=== PATIENT | female | born 1950 | race African-American/Black ===

== ENCOUNTER 2024-01-10 15:11 | Emergency (ER) | payer MEDICARE ==
[~2024-01-10] VITALS: Ht 170.2 cm; Wt 110.0 kg
[2024-01-10 15:16] VITALS: TEMP 97.6; O2SAT 99
[2024-01-10] MEDS: ONDANSETRON HCL 4MG/2ML INJ IV STA (15:43)
[2024-01-10] MEDS: MORPHINE SULFATE 4 MG/ML INJ (FOR IV/IM USE) IV STA (15:44)
[2024-01-10 15:54] LABS: BASOPHILS % 1.7 % (0.0-2.0); HEMATOCRIT. 31.4 % (36.0-48.0); HEMOGLOBIN. 9.7 g/dL (12.0-16.0); LYMPHOCYTES % 32.5 % (20.0-50.0); MEAN CORPUSCULAR HEMOGLOBIN 25.8 pg (28.0-32.0); MEAN CORPUSCULAR HGB CONC 31.1 g/dL (31.0-37.0); MEAN CORPUSCULAR VOLUME 83.1 fL (81.0-99.0); MONOCYTES % 7.5 % (2.0-8.0); NEUTROPHILS % 56.3 % (40.0-76.0); RED BLOOD CELL COUNT 3.78 mill/uL (4.2-5.4); WHITE BLOOD COUNT 13.2 x1000/uL (4.5-11.0)
[2024-01-10 15:56] LABS: DIFFERENTIAL COMMENT 1
[2024-01-10 15:59] LABS: CARBON DIOXIDE 25 mEq/L (21-32); CHLORIDE 106 mEq/L (98-107); POTASSIUM 4.9 mEq/L (3.5-5.1); SODIUM 140 mEq/L (136-145)
[2024-01-10 16:04] LABS: CREATININE 1.2 mg/dL (0.6-1.0); GLUCOSE 178 mg/dL (70-105)
[2024-01-10 16:05] LABS: LACTIC ACID 2.2 mmol/L (0.4-2.0); UREA NITROGEN BLOOD 18 mg/dL (9-23)
[2024-01-10 16:06] LABS: ALANINE AMINOTRANSFERASE 12 IU/L (10-49); ALBUMIN 4.3 g/dL (3.2-4.8); ASPARTATE AMINOTRANSFERASE 22 IU/L (<34)
[2024-01-10 16:07] LABS: BILIRUBIN TOTAL 0.2 mg/dL (0.1-1.0); PROTEIN TOTAL 8.3 g/dL (6.0-8.3)
[2024-01-10 16:56] LABS: PROTHROMBIN TIME 10.8 sec (9.6-11.0)
[2024-01-10] MEDS: SODIUM CHLORIDE 0.9% 1,000 ML IV ONE ×2 (17:18→17:36)
[2024-01-10 17:50] LABS: CLARITY URINE CLOUDY (CLEAR); COLOR URINE YELLOW (YELLOW); GLUCOSE URINE NEGATIVE (NEGATIVE); KETONES URINE NEGATIVE (NEGATIVE); LEUKOCYTE ESTERASE URINE TRACE (NEGATIVE); NITRITE URINE NEGATIVE (NEGATIVE); OCCULT BLOOD URINE NEGATIVE (NEGATIVE); PH URINE 6.5 (4.5-8.0); PROTEIN URINE 2+ (NEGATIVE); SPECIFIC GRAVITY URINE 1.014 (1.005-1.030); UROBILINOGEN URINE 0.2 E.U./dL (0.2-1.0)
[2024-01-10 18:20] LABS: BACTERIA URINE 4+; RBC URINE 0-2 /hpf (0-2); SQUAMOUS EPITHELIAL CELL URINE NONE SEEN /lpf (RARE/1+)
[2024-01-10] MEDS ORDERED: CEFP200T13 MT (18:47)
[2024-01-10] MEDS: CEFTRIAXONE 2GM/50ML 50 ML IV ONE (18:58)
[2024-01-10 19:08] VITALS: BP 153/52; PULSE 90; RESP 19
== END 2024-01-10 19:16 | disposition home or self-care (01) ==
LOC: ER 15:11
DX: N39.0 Urinary tract infection, site not specified (principal); N17.9 Acute kidney failure, unspecified; I10 Essential (primary) hypertension; E11.9 Type 2 diabetes mellitus without complications; Z90.49 Acquired absence of other specified parts of digestive tract; Z86.73 Personal history of transient ischemic attack (TIA), and cerebral infarction without residual deficits
CPT/HCPCS: 99285; 74176; 96365; 96361; 96375; 96366; 80053; 81003; 83605; 83690; 85025; 85610; 87086; 87186; 87077; 36415; J0696; J2405; J2270; J7030